=== PATIENT | male | born 1970 | race Caucasian/White ===

== ENCOUNTER 2019-01-04 02:18 | Emergency (ER) | payer SELFPAY ==
[2019-01-04 03:17] VITALS: BP 107/67; PULSE 68; O2SAT 96
[2019-01-04] MEDS ORDERED: Norco 10/325 MG Tablet PO ONE (03:29)
[2019-01-04] MEDS ORDERED: TORAdol 30 mg Injection IM ONE (03:29)
[2019-01-04] MEDS ORDERED: TORAdol 30 mg Injection ONE (03:48)
[2019-01-04] MEDS ORDERED: Norco 10/325 MG Tablet ONE (03:48)
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
== END 2019-01-04 05:20 | disposition home or self-care (01) ==
LOC: ED 02:18
DX: M25.572 Pain in left ankle and joints of left foot (principal); X50.0XXA Overexertion from strenuous movement or load, initial encounter; X50.3XXA Overexertion from repetitive movements, initial encounter; Y93.89 Activity, other specified; Y92.89 Other specified places as the place of occurrence of the external cause
CPT/HCPCS: 73610; 96372; 99284; J1885; A9270-GY